=== PATIENT | male | born 1940 | race Caucasian/White ===

== ENCOUNTER 2017-01-05 16:44 | Emergency (ER) | payer MEDICARE, BC ==
[~2017-01-05] VITALS: Ht 177.8 cm; Wt 78.6 kg
[2017-01-05 16:46] VITALS: BP 157/74; PULSE 62
[2017-01-05] MEDS ORDERED: GLUCOPHAGE500 MG/TAB PO (16:49)
[2017-01-05] MEDS ORDERED: LOTREL 5/10MG C1 CAP PO (16:49)
[2017-01-05] MEDS ORDERED: ASPIRIN 81M81 MG/TA2 PO (16:50)
[2017-01-05] MEDS ORDERED: PROSCAR 5MG5 MG PO (16:50)
[2017-01-05] MEDS ORDERED: CEPHALEXIN500 M1 PO (17:42)
[2017-01-05 17:54] VITALS: TEMP 98.2
== END 2017-01-05 17:56 | disposition home or self-care (01) ==
LOC: COL.ER 16:44
DX: K11.20 Sialoadenitis, unspecified (principal); E11.9 Type 2 diabetes mellitus without complications; I10 Essential (primary) hypertension; Z79.84 Long term (current) use of oral hypoglycemic drugs

== ENCOUNTER → 2018-01-26 | Outpatient (CLI) | payer MEDICARE, BC ==
[~2018-01-26] MED LIST: ASPIRIN 81M81 MG/TA2 PO; CEPHALEXIN500 M1 PO; GLUCOPHAGE500 MG/TAB PO; LOTREL 5/10MG C1 CAP PO; PROSCAR 5MG5 MG PO
== END ==
LOC: COL.RAD 09:13
DX: C61 Malignant neoplasm of prostate (principal)
CPT/HCPCS: A9503

== ENCOUNTER → 2018-01-30 | Outpatient (CLI) | payer MEDICARE, BC | LOC: COL.RAD 07:59 | DX: C61 Malignant neoplasm of prostate (principal); K57.30 Diverticulosis of large intestine without perforation or abscess without bleeding | CPT/HCPCS: Q9967 ==